=== PATIENT | female | born 1970 | race Two or more races ===

== ENCOUNTER 2020-06-30 21:15 | Emergency (ER) | payer MEDICAID, OTHER ==
[~2020-06-30] VITALS: Ht 162.6 cm; Wt 64.0 kg
--- NOTE | 2020-06-30 21:49 | PHYS DOC ---
Past Medical History Past Medical History: No Pertinent History Smoking Status: Never Smoker Alcohol Use: None Drug Use: None General Adult EDM: Chief Complaint: MULTIPLE COMPLAINTS HPI: HPI: Patient is a 49-year-old female presenting with son for shortness of breath. Patient is predominantly Estonian-speaking and son who is at bedside is primary historian. 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 Reports she has been wearing a mask but the smell has been bothering her throughout the course of the day. She reports after her shift ap proximately 3 hours prior to arrival she was ambulating to her car and got short of breath and dizzy. Patient was able to transport her self at home and was able to perform typical household duties. Patient told other family members in the house her symptoms and there was concern for her wellbeing so she was transported to our ER by her son for evaluation. When asked, rest makes better, nothing known makes worse. Patient denies being in any pain. Timing of symptoms was constant since onset but is "much better" now at time of evaluation in ER. She has no PCP, no known medical diagnoses, no fever, recent travel, COVID-19 contact, mopped assist, exogenous estrogen use, lower extremity edema, history of DVT and/or PE. She denies any tobacco, alcohol or other illicit drug use. She has no significant family history Review of Systems: Review of Systems: Fourteen body systems of review of systems have been reviewed. See HPI for pertinent positives and negative responses, other hurd all other systems are negative, non-pertinent or non-contributory Heart Score: C/O Chest Pain: No HEART Score for Chest Pain: HEART Score for Chest Pain Response (Comments) Value History Slighlty/Non-Suspicious 0 ECG Normal 0 Age >45 - < 65 1 Risk Factors No Risk Factors 0 Total 1 Risk Factors: Risk Factors: DM, Current or recent (<one month) smoker, HTN, HLP, family history of CAD, obesity. Risk Scores: Score 0 - 3: 2.5% MACE over next 6 weeks - Discharge Home Score 4 - 6: 20.3% MACE over next 6 weeks - Admit for Clinical Observation Score 7 - 10: 72.7% MACE over next 6 weeks - Early Invasive Strategies Physical Exam: PE: Constitutional: Well developed, well nourished, no acute distress, non-toxic appearance. HENT: Normocephalic, atraumatic, bilateral external ears normal, oropharynx moist, no oral exudates, nose normal. Eyes: PERRLA, EOMI, conjunctiva normal, no discharge. Neck: Normal range of motion, no tenderness, supple, no stridor. Cardiovascular: Heart rate regular, sinus rhythm, no murmurs rubs or gallops Lungs & Thorax: Bilateral breath sounds clear to auscultation Abdomen: Bowel sounds normal, soft, no tenderness, no masses, no pulsatile masses. Nonsurgical abdomen, no peritoneal signs Skin: Warm, dry, no erythema, no rash. Back: No tenderness, no CVA tenderness. Extremities: No tenderness, no cyanosis, no clubbing, ROM intact, no edema. Neurologic: Alert and oriented X 3, grossly normal motor & sensory function, no focal deficits noted. Psychologic: Affect normal, judgement normal, mood normal. Current Patient Data: Labs: Laboratory Tests Test 06/30/20 21:27 POC Urine HCG, Qualitative Hcg negative (Negative) Vital Signs: Vital Signs Date Time Temp Pulse Resp B/P (MAP) Pulse Ox O2 Delivery O2 Flow Rate FiO2 06/30/20 22:40 69 110/57 (74) 99 Room Air 06/30/20 22:10 72 117/53 (74) 99 Room Air 06/30/20 21:48 98.7 85 18 132/73 (92) 98 Room Air 98.7 06/30/20 21:40 86 132/73 (92) 99 Room Air EKG: EKG: EKG ordered and interpreted by myself at 2159 hrs. as sinus rhythm at 79 bpm, unremarkable intervals, no axis deviation, no STEMI Radiology/Procedures: Radiology/Procedures: EXAM: CHEST ONE VIEW. HISTORY: Shortness of breath. COMPARISON: None. FINDINGS: A frontal view of the chest is obtained. There are no confluent infiltrates. There is no pneumothorax or pleural effusion. The heart is not enlarged. IMPRESSION: 1. No confluent infiltrates. Electronically signed by: Enid Escobar MD (06/30/2020 10:25 PM) [facility] Course & Med Decision Making: Course & Med Decision Making Hemodynamically stable patient with history concerning for bleach exposure in the workplace. Physical exam and comprehensive ER work-up nonconcerning Patient ambulatory, saturating greater than 90% on room air without any obvious distress or concerning findings. I discussed little indication for further diagnostic work-up in ER setting given well-appearing nontoxic patient who is ambulatory and tolerating p.o. intake I discussed little need for antibiotic use. I discussed most likely diagnosis of pneumonitis likely from inhalant exposure. Supportive care with avoidance of trigger/stimulus and short-term steroids advised Resources given for patient to establish care with a local provider to follow-up on ER visit today. Strict return precautions were discussed with good under standing by patient. All questions and concerns addressed prior to your departure Dragon Disclaimer: Dragmelody Disclaimer: This electronic medical record was generated, in whole or in part, using a voice recognition dictation system. Departure Departure Impression: Primary Impression: Pneumonitis due to fumes Disposition: 01 DC HOME SELF CARE/HOMELESS Condition: STABLE Patient Instructions: Pneumonitis Additional Instructions: As discussed prior to ER departure, please use attached resources to follow-up and establish care with primary care physician. You will need to follow-up to ensure symptomatic improvement of your most likely diagnosis that is pneumonitis caused from factory fumes. Scripts Prednisone (PREDNISONE) 20 Mg Tablet 1 TAB PO DAILY for PNEUMONITIS for 4 Days, #4 TAB Prov: PITER HOLT DO 06/30/20 PITER HOLT DO Jun 30, 2020 21:49
--- NOTE | 2020-06-30 22:00 | EKG ---
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
--- NOTE | 2020-06-30 22:28 | RAD ---
EXAM: CHEST ONE VIEW. HISTORY: Shortness of breath. COMPARISON: None. FINDINGS: A frontal view of the chest is obtained. There are no confluent infiltrates. There is no pneumothorax or pleural effusion. The heart is not en larged. IMPRESSION: 1. No confluent infiltrates. Electronically signed by: Enid Escobar MD (06/30/2020 10:25 PM) [facility]
[2020-06-30] MEDS ORDERED: PRED20TA PO (22:34)
[2020-06-30 22:40] VITALS: BP 110/57
[2020-06-30] MEDS ORDERED: predniSONE 10 MG TABLET PO ONE (22:45)
== END 2020-06-30 23:00 | disposition home or self-care (01) ==
LOC: ER 21:15
DX: J18.9 Pneumonia, unspecified organism (principal); R42 Dizziness and giddiness; R06.02 Shortness of breath
CPT/HCPCS: 71045; 81025; 82962; 93005; 99285; J7512

== ENCOUNTER 2020-07-11 20:50 | Emergency (ER) | payer OTHER ==
[~2020-07-11] VITALS: Ht 165.1 cm; Wt 59.0 kg
[~2020-07-11 20:50] MED LIST: PRED20TA PO
[2020-07-11 20:55] VITALS: BP 134/80
[2020-07-11 21:21] LABS: BILIRUBIN,URINE NEGATIVE (NEG); NITRITE,URINE NEGATIVE (NEG); PROTEIN,URINE NEGATIVE (NEG-TRACE)
[2020-07-11 21:25] LABS: COLOR,URINE PINK
[2020-07-11 21:26] LABS: CLARITY,URINE CLOUDY
[2020-07-11 21:27] LABS: RBC,URINE TNTC /HPF (0-2)
[2020-07-11 21:28] LABS: BACTERIA,URINE FEW /HPF (0-FEW)
[2020-07-11] MEDS ORDERED: VALA10008 PO (22:45)
[2020-07-11] MEDS ORDERED: PRED20TA PO (22:45)
[2020-07-11] MEDS ORDERED: HYDR-2761 PO (22:45)
--- NOTE | 2020-07-11 22:46 | PHYS DOC ---
Past Medical History Past Medical History: No Pertinent History Past Surgical History: No Surgical History Smoking Status: Never Smoker Alcohol Use: None Drug Use: None General Adult EDM: Chief Complaint: FLANK PAIN HPI: HPI: 49-year-old female presents to the emergency department with rash and pain on her left abdomen that begins in the medial portion of her abdomen and wraps around to her back. The patient states that she started feeling irritation pain about a week ago and has just gotten worse every day and she has not been able control the pain with any type of medication and she came to emergency department today because it got so bad that she could not work. She has continued over through the pain up until today because if she is a day of work then she will lose her job. The rash is painful to touch and it is painful to move. She is Indonesian-speaking only but does have a son to translate for her who is present. Patient states that this is the worst pain she is ever had and feels like a tingling and a stabbing pain. Pain does not radiate anywhere else besides that specific region which is about 3 inches in width. Review of Systems: Review of Systems: Constitutional: Denies fever or chills Eyes: Denies redness or eye pain HENT: Denies nasal congestion or sore throat Respiratory: Denies cough or shortness of breath Cardiovascular: Denies chest pain or palpitations GI: Denies abdominal pain, nausea, or vomiting : Denies dysuria or hematuria Musculoskeletal: Denies back pain or joint pain Integument: 3 inch width vesicular rash that begins midline and abdomen 6 inches above her umbilical and wraps around to her back Neurologic: Denies headache, focal weakness or sensory changes Complete systems were reviewed and found to be within normal limits, except as documented in this note. Heart Score: Risk Factors: Risk Factors: DM, Current or recent (<one month) smoker, HTN, HLP, family history of CAD, obesity. Risk Scores: Score 0 - 3: 2.5% MACE over next 6 weeks - Discharge Home Score 4 - 6: 20.3% MACE over next 6 weeks - Admit for Clinical Observation Score 7 - 10: 72.7% MACE over next 6 weeks - Early Invasive Strategies Allergies: Allergies: Allergies Coded Allergies Type Severity Reaction Last Updated Verified No Known Drug Allergies 06/30/20 No Physical Exam: PE: Constitutional: Well developed, well nourished, no acute distress, non-toxic appearance HENT: Normocephalic, atraumatic Eyes: PERRL, EOMI, conjunctiva normal, no discharge Neck: Normal range of motion, no tenderness, supple Lungs & Thorax: No respiratory distress, equal chest rise and fall Abdomen: Soft, no tenderness Skin: Vesicular rash noted that begins 6 inches above her umbilicus and wraps around to her back Back: No tenderness, no CVA tenderness Extremities: No tenderness, ROM intact, no edema Neurologic: Alert and oriented X 3, normal motor function, normal sensory function, no focal deficits noted Psychologic: Affect normal, judgment normal Current Patient Data: Labs: Laboratory Tests Test 07/11/20 20:50 Urine Collection Type Unknown Urine Color [place] Urine Clarity Cloudy Urine pH 8.0 (<5.0-8.0) Urine Specific [place] 1.015 (1.000-1.030) Urine Protein Negative mg/dL (NEG-TRACE) Urine Glucose (UA) Negative mg/dL (NEG) Urine Ketones (Stick) Negative mg/dL (NEG) Urine Blood Large (NEG) Urine Nitrite Negative (NEG) Urine Bilirubin Negative (NEG) Urine Urobilinogen Dipstick 1.0 mg/dL (0.2 mg/dL) Urine Leukocyte Esterase Small (NEG) Urine RBC Tntc /HPF (0-2) Urine WBC 1-4 /HPF (0-4) Urine Squamous Epithelial Cells Many /LPF Urine Bacteria Few /HPF (0-FEW) Vital Signs: Vital Signs Date Time Temp Pulse Resp B/P (MAP) Pulse Ox O2 Delivery O2 Flow Rate FiO2 07/11/20 20:55 98.8 77 16 134/80 (98) 100 Room Air 98.8 EKG: EKG: [] Radiology/Procedures: Radiology/Procedures: [] Course & Med Decision Making: Course & Med Decision Making 49-year-old patient presents to the emergency department for a left-sided rash that present over a week ago and that is extremely painful. The patient denies any hematuria hematochezia or change in urination or bowel movements. The patient's pain is very localized to the rash which is 3 inches in width and begins about 6 inches above the umbilicus and the abdomen medially and wraps around the back. Patient describes the pain as tingling and sharp and the worst pain she ever had in her life. The patient attempted to use ibuprofen and other pain relieving medications, but they did not help the pain whatsoever. The patient came in the emergency department today because the pain was unbearable and she cannot work anymore. After examination of the vesicular erythematous rash, she was diagnosed with shingles. The patient was given valacyclovir and pain medication as well as a work note. The patient was a Indonesian-speaking patient but had her son there to translate for her. Patient was explained and educated about shingles. Patient stable for discharge with outpatient follow-up with PCP. Discussed findings and plan with patient, who acknowledges understanding and agreement. Dragon Disclaimer: Dragon Disclaimer: This electronic medical record was generated, in whole or in part, using a voice recognition dictation system. Departure Departure Impression: Primary Impression: Shingles Qualified Codes: B02.9 - Zoster without complications Disposition: 01 DC HOME SELF CARE/HOMELESS Condition: STABLE Referrals: NO PCP (PCP) Patient Instructions: Shingles, Nadl-ns-Ldos Additional Instructions: May also take over the counter Ibuprofen as needed for pain. Scripts Hydrocodone Bit/Acetaminophen (HYDROCODONE-APAP 5-325 ) 1 Tab Tablet 0.5-1 TAB PO PRN Q6HRS PRN for PAIN, #10 TAB 0 Refills Prov: ALONA LEY DO 07/11/20 Valacyclovir Hcl (VALACYCLOVIR) 1,000 Mg Tablet 1 TAB PO TID for 7 Days, #21 TAB Prov: ALONA LEY DO 07/11/20 Prednisone (PREDNISONE) 20 Mg Tablet 2 TAB PO DAILY, #8 TAB Start this prescription tomorrow, Tuesday07/12/20 Prov: ALONA LEY DO 07/11/20 ALONA LEY DO Jul 11, 2020 22:46
[2020-07-11] MEDS: DEXAMETHASONE 4 MG TABLET PO ONE (22:58)
[2020-07-11] MEDS: HYDROcodone/APAP 5/325MG 1 TAB TABLET PO ONE (22:58)
[2020-07-11] MEDS: valACYclovir 500 MG TABLET. PO ONE (22:59)
== END 2020-07-11 23:02 | disposition home or self-care (01) ==
LOC: ER 20:50
DX: B02.9 Zoster without complications (principal); R21 Rash and other nonspecific skin eruption; R10.9 Unspecified abdominal pain
CPT/HCPCS: 81001; 87086; 99284

== ENCOUNTER 2020-07-27 13:35 | Emergency (ER) | payer OTHER ==
[~2020-07-27 13:35] MED LIST changes: +HYDR-2761 PO; +VALA10008 PO
== END 2020-07-27 14:50 | disposition left against medical advice (07) ==
LOC: ER 13:35
DX: B02.32 Zoster iridocyclitis (principal); Z53.21 Procedure and treatment not carried out due to patient leaving prior to being seen by health care provider